=== PATIENT | female | born 1960 | race American Indian/Alaskan Native ===

== ENCOUNTER → 2019-09-03 | Outpatient (CLI) | payer OTHER ==
--- NOTE | 2019-09-03 12:44 | Diagnostic Imaging Report ---
EXAM: CHEST 2 VIEWS DATE: 09/03/2019 12:02 PM INDICATION: Cough COMPARISON: None FINDINGS/IMPRESSION: The trachea is midline. There is mild prominence of the interstitium which is nonspecific but can be seen in the setting of a atypical/viral infectious process. The lungs are otherwise symmetrically expanded without evidence for large focal consolidation, pneumothorax, or significant pleural effusion. The cardiomediastinal silhouette and pulmonary vasculature are within normal limits. No acute osseous abnormality is identified. The surrounding soft tissues are unremarkable. Signed by: Dr. Felice Hill MD on 09/03/2019 12:41 PM
== END ==
LOC: RAD 11:43
PROVIDERS: ATTEND Internal Medicine
DX: R05 Cough (principal)
CPT/HCPCS: 71046

== ENCOUNTER 2021-06-25 22:55 | Emergency (ER) | payer OTHER ==
[~2021-06-25] VITALS: Ht 160 cm; Wt 87.5 kg
[2021-06-25] MEDS ORDERED: DONNATAL/LIDOCAINE/MAALOX 30 ML SUSP PO STA (23:09)
[2021-06-25] MEDS ORDERED: PEPCID20 MG PO (23:26)
[2021-06-25] MEDS ORDERED: LIDOCAINE VISC 2% SOLN 15 ML UDC ONE (23:35)
[2021-06-25] MEDS ORDERED: MAGNESIUM/ALUMINUM/SIMETHICONE 30 ML UDC ONE (23:36)
[2021-06-25] MEDS ORDERED: BELLADONNA ALK/PHENOBARBITAL 5 ML UDC ONE (23:36)
[2021-06-26 03:45] VITALS: BP 132/65
== END 2021-06-26 01:45 | disposition home or self-care (01) ==
LOC: ER 23:04
DX: R10.13 Epigastric pain (principal); R11.2 Nausea with vomiting, unspecified
CPT/HCPCS: 99284